=== PATIENT | male | born 1980 | race Caucasian/White ===

== ENCOUNTER 2016-11-27 11:49 | Outpatient (CLI) | payer MEDICAID ==
[~2016-11-27] VITALS: Ht 182.9 cm; Wt 104.5 kg
--- NOTE | ~2016-11-27 | HEMODYNAMI ---
PATIENT:ADAL FINNEGAN MEDICAL RECORD: [id number] : 82 LOCATION:D.CAT ADMISSION DATE: 11/27/16 Generatedon:11/27/201614:16 Patient name: ADAL FINNEGAN Patient #: [id number] : 1980 Date of study: 11/27/2016 Page: Of Hemodynamic Procedure Report Patient Data Patient Demographics Procedure consent was obtained First Name: ADAL Gender: Male Last Name: KAIN : 1980 Middle Initial: ELENITA Age: 36 year(s) Patient #: [id number] Race: Unknown SSN: [id number] Additional ID: [id number] Contact details Address: [address] [place] [address] [facility] State: [place] City: [place] Zip code: [address] Past Medical History Allergies: No known allergies Admission Admission Data Admission Date: 11/27/2016 Admission Time: 11:49 Arrival Date: 11/27/2016 Arrival Time: 0:00 Admit Source: Other Height (in.): 75 BSA: 2.3 (m2) Height (cm.): 190.5 BMI: 27.87 (kg/m2) Weight (lbs.): 223 Weight (kg.): 101.15 Procedure Procedure Types Cath Procedure Diagnostic Procedure PPM/ICD PPM Dual Implant Procedure Description Procedure Date Procedure Date: 11/27/2016 Procedure Start Time: 13:26 Procedure End Time: 14:03 Procedure Staff Name Function Evon Cedillo RT Scrub Avery Vasquez MD Performing Physician Cade Iyer MD Performing Physician Emmy Benson RN Nurse Simba Morales RN Fish Technologist Elham Michael RT Monitor Procedure Data Cath Procedure Fluoroscopy Diagnostic fluoroscopy Total fluoroscopy dose: 51 dose: 51 mGy mGy Estimated blood loss: 10 ml Procedure Complications No complications Procedure Medications Medication Administration Route Dosage Ancef (1Gm/50ml NS) I.V.P.B 1 g Ancef Irrigation added to field 1 g (1gm/500ml NS) Lidocaine 1% with added to field 20 ml Epi Bupivacaine 0.5% added to field 20 ml Versed I.V. 1 mg Fentanyl I.V. 50 mcg Versed I.V. 1 mg Fentanyl I.V. 50 mcg Lidocaine 1% with added to field 20 ml Epi Bupivacaine 0.5% added to field 20 ml Fentanyl I.V. 50 mcg Versed I.V. 1 mg Fentanyl I.V. 50 mcg Hemodynamics Rest BSA: 2.3 (m2) O2 Consumption: Estimated: 312.8 (ml/min) O2 Consumption indexed: Estimated:136 (ml/min/m) Pre Cath Intra NCS Post Cath Vital Signs Time Heart Resp SPO2 NIBP (mmHg) Rhythm Pain Sedation Rate (ipm) (%) Status Level (bpm) 13:13:26 67 20 95 132/84(101) NSR 0 (11) 10(A) , No pain 13:17:48 70 17 99 131/83(105) NSR 0 (11) 10(A) , No pain 13:22:10 76 16 97 132/82(104) NSR 0 (11) 10(A) , No pain 13:26:28 77 17 96 142/89(106) NSR 0 (11) 10(A) , No pain 13:30:52 83 16 97 136/87(113) NSR 0 (11) 10(A) , No pain 13:35:12 78 12 96 132/83(100) NSR 0 (11) 10(A) , No pain 13:39:35 85 17 96 143/81(96) NSR 0 (11) 10(A) , No pain 13:44:01 84 15 95 136/77(98) NSR 0 (11) 10(A) , No pain 13:48:17 83 15 95 139/80(99) NSR 0 (11) 10(A) , No pain 13:52:41 87 17 95 140/79(102) NSR 0 (11) 10(A) , No pain 13:57:05 85 16 95 131/81(93) NSR 0 (11) 10(A) , No pain 14:01:28 88 14 95 131/81(91) NSR 0 (11) 10(A) , No pain Medications Time Medication Route Dose Verified Delivered Reason Notes Effective ness by by 13:10:05 Ancef I.V.P.B 1 g Avery Emmy Per (1Gm/50ml [facility] RN physician NS) 13:12:33 Ancef added 1 g Avery Avery used for Irrigation to [place] procedure (1gm/500ml field MD SOTO NS) 13:12:46 Lidocaine added 20 ml Avery Avery used for 1% [facility] SOTO 13:12:53 Bupivacaine added 20 ml Avery Avery used for 0.5% to [place] Christina procedure field MD SOTO 13:26:07 Versed I.V. 1 mg [facility] 13:26:18 Fentanyl I.V. 50 Avery Emmy for [facility] [place] [facility] RN sedation 13:28:47 Versed I.V. 1 mg [facility] sed[facility] 13:28:53 Fentanyl I.V. 50 Avery Emmy for [facility] RN sedation 13:31:00 Lidocaine added 20 ml Avery Avery used for 1% with Epi to Christina Christina procedure field MD SOTO 13:31:06 Bupivacaine added 20 ml Avery Avery used [facility] MD SOTO 13:31:12 Fentanyl I.V. [address] [facility] [address] [facility] 13:32:43 Versed I.V. 1 mg Avery Emmy for [facility] RN sedation 13:51:06 Fentanyl I.V. 50 [facility] Emm[facility] Procedure Log Time Note 13:00:09 Admit Source: Other 13:00:11 Arrival Date: 11/27/2016 12:00:00 AM 13:00:29 Patient Height : 190.5 cm 13:00:40 Patient Weight : 101.15 kg 13:00:55 Diagnostic Cath Status : Elective 13:02:17 Simba Morales RN sent for patient. Start room use. 13:02:19 Time tracking: Regular hours 13:02:24 Plan of Care:Hemodynamics will remain stable., Cardiac rhythm will remain stable., Comfort level will be maintained., Respiratory function will remain adequate., Patient/ family verbilizes understanding of procedure., Procedure tolerated without complication., Recovers from procedure without complications.. 13:02:34 Patient received from Outpatients to CCL 2 Alert and oriented. Tansferred to table in Supine position. 13:02:36 Warm blankets applied, and pauline hugger turned on for patient comfort. 13:02:38 Correct patient and procedure confirmed by team. 13:02:40 Signed procedure consent form obtained from patient. 13:03:10 H&P Date Dictated: 11/19/2016 Within 30 days and on chart., H&P Addendum completed by physician on day of procedure. (MUST COMPLETE FOR ALL OUTPATIENTS). 13:03:15 Pre-procedure instructions explained to patient. 13:03:19 Family in waiting room. 13:03:21 Patient NPO since Midnight. 13:03:32 Patient allergic to No known allergies 13:04:01 Use device set Pacemaker Set 13:04:31 Medtronic employment representative Moo Ramires present for procedure. 13:10:05 Ancef (1Gm/50ml NS) 1 g I.V.P.B was given by Emmy Benson RN; Per physician; 13:12:04 Vital chart was started 13:12:33 Ancef Irrigation (1gm/500ml NS) 1 g added to field was given by Avery Vasquez MD; used for procedure; 13:12:46 Lidocaine 1% with Epi 20 ml added to field was given by Avery Vasquez MD; used for procedure; 13:12:53 Bupivacaine 0.5% 20 ml added to field was given by Avery Vasquez MD; used for procedure; 13:25:10 Is the patient allergic to Iodine/contrast media? No. 13:25:12 Is patient on blood thinner?No 13:25:14 Patient diabetic? No. 13:25:18 Snore? Yes 13:25:20 Sleep apnea? No 13:25:21 Deviated septum? No 13:25:22 Opens mouth fully? Yes 13:25:23 Sticks out tongue? Yes 13:25:38 IV patent on arrival in right hand with 0.9% NaCl at O. 13:25:43 Lab results completed and on chart. 13:25:52 Left chest area was prepped with chlora-prep and draped in sterile fashion 13:25:54 Alarms reviewed by R. N. 13:25:55 Sharps counted by scrub and verified by R.N. 13::57 Physician arrived 13::57 --------ALL STOP TIME OUT------ 13:25:59 Final Timeout: patient, procedure, and site verified with staff and physician. All members of the team are in agreement. 13:26:07 Versed 1 mg I.V. was given by Emmy Benson RN; for sedation; 13:26:08 Left chest site verified by team. 13:26:12 Physical assessment completed. ASA score P 2 - A patient with mild systemic disease as per Avery Vasquez MD. 13:26:16 Sedation plan: IV Moderate Sedation Versed, Fentanyl 13:26:18 Fentanyl 50 mcg I.V. was given by Emmy Benson RN; for sedation; 13:26:38 Procedure started. 13:26:39 Full Disclosure recording started 13::59 Grounding pad site Left thigh. 13:27:46 Grounding pad site free from injury. 13:27:56 Lidocaine 1% w/epi and Bupivacaine 0.5% to left subclavicular area by Cade Iyer MD. 13:27:58 Incision made to left subclavicular area. 13:28:47 Versed 1 mg I.V. was given by Emmy Benson RN; for sedation; 13:28:53 Fentanyl 50 mcg I.V. was given by Emmy Benson RN; for sedation; 13:29:43 Generator pocket made/opened. 13:30:43 Mepilex Dressing opened to sterile field. 13:30:44 2.0 Ticron Multipack opened to sterile field. 13:30:45 3.0 Vicryl Multipack [id number] opened to sterile field. 13:30:45 3.0 Vicryl Single Pack [id number] opened to sterile field. 13:30:46 5.0 Monocryl [id number] opened to sterile field. 13:31:00 Lidocaine 1% with Epi 20 ml added to field was given by Avery Vasquez MD; used for procedure; 13:31:06 Bupivacaine 0.5% 20 ml added to field was given by Avery Vasquez MD; used for procedure; 13:31:12 Fentanyl 50 mcg I.V. was given by Emmy Benson RN; for sedation; 13:32:41 Medtronic 4574-53 PPM Lead opened to sterile field. 13:32:41 Medtronic 4074-58 PPM Lead opened to sterile field. 13:32:42 Medtronic Advisa MRI PPM Dual Generator opened to sterile field. 13:32:43 Versed 1 mg I.V. was given by Emmy Benson RN; for sedation; 13:34:38 Ventricular lead inserted and advanced. 13:35:08 Peel-a-way sheath was split and removed. 13:39:45 Ventricular lead attachment was completed with 2-0 ticron. 13:42:25 Atrial lead inserted and advanced. 13:44:10 Atrial lead attachment was completed with 2-0 ticron. 13:44:57 Device pocket was irrigated with Ancef. 13:45:04 PPM Dual was attached to lead(s) and inserted into pocket. 13:45:32 Subcutaneous closure was completed with 3-0 vicryl plus. 13:47:36 Generator was sutured in place with 2-0 ticron. 13:48:46 Parameters--Ventricular P/R Wave: 14.5mV. Current: .2mA; Threshold: .3V; Impedence: 1723OHMS. 13:49:41 Parameters--Atrial P/R Wave: 2.1mV. Current: 25mA; Threshold: .7V; Impedence: 815OHMS. 13:51:06 Fentanyl 50 mcg I.V. was given by Emmy Benson RN; for sedation; 13:54:17 Skin closure was completed with 3-0 vicryl. 13:55:45 Parameters-- Generator: Mode: AAIR<=>DDDR. Lower Rate: 60bpm. Upper Rate: 130bpm. 13:55:52 Lt Chest incision was dressed with Mepilex dressing. 14:00:52 Procedure ended.(Physican Out) 14:01:29 Flurop Dose total: 51 14:01:29 Fluoroscopy dose: 51 mGy 14:01:32 Sharps counted by scrub and verified by R.N. 14:01:36 Insertion/operative site no bleeding no hematoma. 14:01:44 Post-op/insertion site Left Subclavian vein dressed using a Mepilex dressing. 14:01:53 Post-procedure physical assessment completed. ASA score P 2 - A patient with mild systemic disease as per Avery Vasquez MD. 14:01:59 Post procedure rhythm: paced 14:02:06 Estimated blood loss: 10 ml 14:02:09 Post procedure instruction explained to patient.Patient verbalizes understanding. 14:02:37 Procedure and supply charges have been captured, reviewed, submitted and are correct. 14:02:45 Procedure Complication : No complications 14:02:50 Vital chart was stopped 14:02:56 See physician's report for complete and final results. 14:03:10 Report given to Post Procedure Room. 14:03:18 Patient transfered to Post Procedure Room with Stretcher. 14:03:22 Procedure ended. 14:03:22 Full Disclosure recording stopped 14:03:35 End room use (Document Last) Device Usage Item Name Manufacture Quantity Catalog Hospital Part Current Minimal Lo t# / Number Charge Number Stock Stock Serial# Code Mepilex Cardinal 1 [id number] [id number] [id number] 5 Dressing Health 2.0 Ethicon 7 [id number] 610620 5 Ticron Multipack 3.0 Ethicon 1 [id number] 609865 148540 5 Vicryl Multipack [id number] 3.0 Ethicon 1 [id number] 983786 185798 5 Vicryl Single Pack [id number] 5.0 Ethicon 1 [id number] 122624 943578 5 Monocryl [id number] Medtronic Medtronic 1 4574-53 116838 481285 5 BB [id number] 4574-53 10-09-31 PPM Lead Medtronic Medtronic 1 4074-58 984242 706111 5 BB [id number] 4074-58 PPM Lead Medtronic Medtronic 1 [id number] 424180 676112 5 PV [id number] Advisa 10-04-14 MRI PPM Dual Generator Signature Audit [place] Stage Time Signature Unsigned Intra-Procedure 11/27/2016 Elham Michael 2:16:54 PM RT(R) Signatures Monitor : Elham Michael Signature : RT Date : Time : [address] [place] [address]
[2016-11-27] MEDS ORDERED: PRINIVIL20 MG PO (12:41)
[2016-11-27] MEDS ORDERED: ZYLOPRIM300 MG PO (12:41)
[2016-11-27] MEDS ORDERED: TOPROL XL50 MG PO (12:42)
[2016-11-27] MEDS ORDERED: CELEXA20 MG PO (12:42)
[2016-11-27 12:48] VITALS: BP 141/86; BMI 31.2
[2016-11-27 13:15] LABS: APTT 30.3 SECONDS (22.8-39.4); INR 0.93 (0.85-1.17); PROTIME 12.3 SECONDS (11.6-15.0)
[2016-11-27 13:37] LABS: CALC OSMOLALITY 267 mosm/kg (275-300); CALCIUM 8.4 mg/dL (8.5-10.1); CHLORIDE - SERUM 96 mmol/L (98-107); GLUCOSE 108 mg/dL (74-106); POTASSIUM - SERUM 4.7 mmol/L (3.5-5.1); SODIUM 131 mmol/L (136-145); UREA NITROGEN 24 mg/dL (7-18); eGFR NON AFRICAN AMERICAN 90 mL/min (90-120)
[2016-11-27 14:04] LABS: HEMATOCRIT 36.8 % (42.0-54.0); MCV 94.1 fL (80.0-100.0); MEAN PLATELET VOLUME 10.6 fL (7.4-10.4); RBC 3.91 10x6/uL (4.20-6.10); RDW 15.7 % (11.5-14.5); WBC 5.3 10x3/uL (4.8-10.8)
[2016-11-27 14:12] LABS: HEMOGLOBIN 12.7 g/dL (13.5-17.5)
[2016-11-27 14:14] LABS: MCH 32.6 pg (26.0-34.0); MCHC 34.6 g/dL (31.0-37.0)
--- NOTE | 2016-11-27 14:35 | NUR ---
VSS WITH CHEST PAIN DENIED PACE MAKER SITE TO LEFT CHEST WALL CDI WITH LEFT ARM TO SLING. PATIENT COMPLAINS OF PAIN TO SITE. ONE NORCO GIVEN PER ORDERS OF DR CONSTANTINO. WILL MONITOR
--- NOTE | 2016-11-27 15:00 | NUR ---
1500 TALKING TO FAMILY AT SIDE WITH VSS. LEFT ARM TO SLING SANDWICH AND SODA PROVIDED 1530 VSS WITH DRESSING TO LEFT CHEST WALL CDI NO BLEEDING NO HEMATOMA NOTED.
--- NOTE | 2016-11-27 16:09 | NUR ---
TRANSFER FROM DIRECTOR DESIGN HOLDING BY PAULA. OREINTED TO ROOM. CALL LIGHT IN REACH. WILL CONT. PLAN OF CARE.
[2016-11-27 16:20] VITALS: BP 172/83; BMI 31.2
[2016-11-27 20:00] VITALS: BP 136/85
[2016-11-28] VITALS: BP 142/90
--- NOTE | 2016-11-28 00:35 | NUR ---
NORCO 10 X 2 GIVEN FOR INCISIONAL PAIN.
--- NOTE | 2016-11-28 03:53 | NUR ---
STEEL DIE ENGRAVER AT BEDSIDE TO OBTAIN VITALS, CALL LIGHT IN REACH. WILL CONTINUE WITH PLAN OF CARE.
[2016-11-28 04:00] VITALS: BP 139/83
--- NOTE | 2016-11-28 06:39 | NUR ---
HEMATOMA NOTED TO LT CEST PACEMAKER AREA DR LLOYD GREEN PRESSURE APPLIED SAND BAG APPLIED WILL CONTINUE TO MONITOR
--- NOTE | 2016-11-28 08:39 | NUR ---
DR KELLEY RETURNED PAGE INFORMED OF SWELLING TO LT PACEMAKER AREA STATES WILL BE RIGHT OVER SANDBAG IN PLACE TO LT CHEST FOR PRESSURE PT C/O OF PAIN
[2016-11-28 09:58] VITALS: BP 139/83; Ht 182.9 cm; Wt 104.5 kg
--- NOTE | 2016-11-28 11:30 | NUR ---
PT TAKEN TO OR FOR EVACUATION OF HEMATOMA LEFT UNIT VIA BED IN STABLE CONDITION
--- NOTE | 2016-11-28 13:00 | NUR ---
RECEIVED PT BACK TO ROOM VIA BED FROM RECOVERY IN STABLE CONDITION VSS PRESSURE DRSG C/D/I TO LT CHEST AREA
--- NOTE | 2016-11-28 14:20 | NUR ---
SCD'S ON BILATERAL LE
--- NOTE | 2016-11-28 14:44 | OP ---
PATIENT NAME: RITESH FINNEGAN MEDICAL RECORD: [id number] :82 LOCATION:D.M2 D.2115 ADMISSION DATE:11/28/16 SURGEON: SYLVIE CONSTANTINO MD DATE OF OPERATION: 11/27/2016 SURGEON: Cade Iyer MD INDICATION: Sick sinus syndrome with sinus arrest greater than 10 seconds. DESCRIPTION OF PROCEDURE: After left subclavian was cannulated via direct visualization, Dr. Iyer, first under fluoroscopic guidance, I placed the RV lead in the RV apex without difficulty. After adequate R waves and thresholds were obtained, I then placed the right atrial lead, right atrial appendage without difficulty. After adequate P waves and thresholds were again obtained, the leads were attached to appropriate poles of the generator and the pocket was closed via Dr. Iyer. IMPRESSION: Successful lead portion of permanent pacemaker placement on Ritesh Finnegan. COMPLICATIONS: None. DISPOSITION: To the floor, stable. ESTIMATED BLOOD LOSS: Minimal. TRANSINT:[id number] Voice Confirmation ID: [id number] DOCUMENT ID: [id number] SYLVIE CONSTANTINO MD at 1444 CC: [id number] DICTATION DATE: 11/27/16 1348 AERONAUTICAL INSPECTOR: 11/27/16 2212 ADM IN [id number] [place] [address]
[2016-11-28 16:57] VITALS: BP 124/70
[2016-11-28 20:15] VITALS: BP 121/73
--- NOTE | 2016-11-28 20:31 | NUR ---
RESUMED CARE OF PT, LYING IN BED RESPIRATIONS EVEN AND UNLABORED ON ROOM AIR. MORPHINE 4MG IVP GIVEN FOR INCISIONAL PAIN. RIGHT HAND INFUSING NS @ KVO. 93 SR ON TELEMETRY. WILL CONTINUE TO MONITOR. CALL LIGHT IN REACH. SEE NURSE ASSESSMENT.
[2016-11-29 04:00] VITALS: BP 139/90
--- NOTE | 2016-11-29 05:30 | NUR ---
CALL LIGHT IN REACH. WILL CONTINUE WITH PLAN OF CARE.
--- NOTE | 2016-11-29 07:30 | NUR ---
RECEIVED PT IN BED EYES CLOSED RESP UNLABORED NAD NOTED DRSG TO LT CHEST C/D/I
[2016-11-29 08:00] VITALS: BP 138/92
[2016-11-29] MEDS ORDERED: HYDROCODONE-APA1 TAB PO (10:17)
--- NOTE | 2016-11-29 10:33 | NUR ---
REVIEWED DISCHARGE INSTRUCTIONS PT STATES UNDERSTANDING COPY GIVEN TO PT DCD RT HAND SALINE LOCK WITH IV CATH INTACT NO REDNESS OR EDEMA NOTED TO SITE PT DISCHARGED HOME LEFT UNIT VIA W/C IN STABLE CONDITION WITH ALL PERSONAL BELONGINGS
--- NOTE | 2016-12-02 14:09 | DS ---
PATIENT:ADAL FINNEGAN :82 MEDICAL RECORD: [id number] DISCHARGE SUMMARY ADMISSION DATE: 11/27/16 DISCHARGE DATE: 11/29/16 PROBLEM LIST: Sick sinus syndrome with sinus arrest. PROCEDURE PERFORMED: Permanent pacemaker placement. BRIEF HOSPITAL COURSE: A 36-year-old who was found to have sinus arrest, pulse greater than 12 seconds, after presenting with syncope. He underwent permanent pacemaker placement, subsequently developed arterial bleeding and have this closed via Dr. Iyer. He was discharged home in good condition. DISCHARGE DIET: AHA diet. DISCHARGE ACTIVITY: As tolerated. I will see him back in the office in month. TRANSINT:[id number] Voice Confirmation ID: [id number] DOCUMENT ID: [id number] SYLVIE CONSTANTINO MD at 1409 CC: [id number] DICTATION DATE: 11/29/16 0843 FRICTION SAW OPERATOR: 11/29/16 1729 DEP CLI 11/29/16 [id number] [place] [address]
--- NOTE | 2017-01-22 10:17 | OP ---
PATIENT NAME: ADAL FINNEGAN MEDICAL RECORD: [id number] :82 LOCATION:D.CAT ADMISSION DATE: SURGEON: ARMEN KELLEY MD DATE OF OPERATION: 11/27/2016 PREOPERATIVE DIAGNOSIS: Sick sinus syndrome with sinus arrest. POSTOPERATIVE DIAGNOSIS: Sick sinus syndrome with sinus arrest. PROCEDURE: Creation of pacemaker pocket. Insertion of atrial and ventricular leads into the central venous circulation. Placement of pacemaker generator in the pacemaker pocket with closure. This was a cosurgeon case. COP EXAMINER: Avery Vasquez MD SURGEON: Armen Kelley MD. ANESTHESIA: Local with IV sedation. The risks, possible complications, and alternatives to procedure were explained to the patient. He elects to proceed. OPERATIVE COURSE: The patient was conveyed to the cardiac catheterization laboratory on 11/27/2016. IV sedation was induced by the nursing staff under my direction. The left chest was sterilely prepped and draped. A local anesthetic was used to infiltrate the skin and subcutaneous tissues inferior to the left clavicle. A transverse incision was accomplished down to the pectoralis fascia. A subcutaneous pocket was created in caudad direction. Through this pocket, I accessed the left subclavian vein in an antegrade fashion. A 9-Singaporean dilator sheath was advanced over the wire under fluoroscopy. The dilator was removed. Through the sheath, the ventricular lead was advanced. The Peel-Away sheath was then removed. Dr. Avery Vasquez positioned the lead, appropriate thresholds were obtained. I then sutured the lead to the underlying pectoralis muscle with 2-0 TiCron times 2. Over the secondary wire, a 7-Singaporean dilator sheath was advanced. The dilator and wire were removed. Through the sheath, an atrial lead was advanced. The Peel-Away sheath was then removed. Dr. Avery Vasquez positioned the atrial lead. Appropriate thresholds were obtained. I sutured the atrial lead to the underlying pectoralis fascia and muscle with 2-0 TiCron times 2. An additional 2-0 TiCron was applied medially around both leads in order to prevent back bleeding. I identified the serial number on the ventricular lead and confirmed this with the pacemaker retail service representative. The ventricular lead was placed in the ventricular dock of the pacemaker. The wrench was then used to tighten down the lead. I then confirmed the atrial lead serial number with the pacemaker television production technician. Atrial lead was placed in atrial dock of the pacemaker generator and I tightened down with the wrench. I tried to dislodge the atrial lead and the ventricular lead and was unable to do so, indicating that they were firmly seated in the pacemaker generator. The pacemaker was placed in the pacemaker pocket with care paid to position the leads posterior to pacemaker generator. The pacemaker was sutured to the underlying pectoralis fascia muscle with a 2-0 OPERATIVE REPORT [id number] ADAL FINNEGAN. I irrigated in the pacemaker pocket with normal saline. The deep adipose layer was closed with interrupted 3-0 Vicryl sutures. The subcutaneous tissues were closed with interrupted 3-0 Vicryls. The skin was closed with a running intracuticular 3-0 Vicryl. A sterile dressing was applied. The patient was then conveyed to the prior cardiac catheterization recovery area. TRANSINT:[id number] Voice Confirmation ID: [id number] DOCUMENT ID: [id number] ARMEN KELLEY MD at 1017 CC: AVERY CONSTANTINO MD [id number] DICTATION DATE: 11/27/16 1413 OUTREACH NURSE: 11/27/16 2231 DEP CLI 11/29/16 [facility] [address] [place] [address]
--- NOTE | 2017-01-22 10:17 | OP ---
PATIENT NAME: ADAL FINNEGAN MEDICAL RECORD: [id number] :82 LOCATION:D.CAT ADMISSION DATE: SURGEON: ARMEN KELLEY MD DATE OF OPERATION: 11/28/2016 PREOPERATIVE DIAGNOSIS: Postoperative pacemaker pocket hematoma. POSTOPERATIVE DIAGNOSIS: Postoperative pacemaker pocket hematoma due to a subcutaneous arterial squirter on the medial aspect of the pacemaker pocket. PROCEDURE: Incision and drainage of pacemaker pocket's hematoma with evacuation of the hematoma. SURGEON: Armen Kelley MD JOINT CUTTER: None. BLOOD LOSS: 150 cc. ANESTHESIA: General. COMPLICATIONS: None. The risks, possible complications and alternatives to the procedure were explained to the patient. He elects to proceed. OPERATIVE COURSE: The patient was conveyed to the operating room urgently on 11/28/2016. General anesthesia was induced by the anesthesia staff. The skin and subcutaneous sutures were cut. I immediately identified an arterial squirter from the subcutaneous tissues at the medial aspect of the incision. This was cauterized. There was no further bleeding. I evacuated the hematoma. Portions were solid and portions were liquid. I irrigated with hydrogen peroxide. There was no further bleeding. I then instilled Cassie into the pacemaker pocket. The subdermis was approximated with interrupted 3-0 Vicryls. The skin was approximated with a running intracuticular 4-0 Monocryl. Prior to the procedure, I asked the vascular ultrasound technician to obtain a fluoroscopic image of the leads to ensure that they had not been dislodged. The leads looked fine. Sterile dressing was applied. The patient was then extubated and conveyed to post-anesthesia care unit where he was in stable condition. We will watch him overnight for rebleeding. TRANSINT:[id number] Voice Confirmation ID: [id number] DOCUMENT ID: [id number] OPERATIVE REPORT [id number] KAINADAL ARMEN VIRK MD at 1017 CC: [id number] DICTATION DATE: 11/28/16 1204 SUPERVISOR FISH BAIT PROCESSING: 11/28/16 1405 DEP CLI 11/29/16 [address] [place] [address]
== END 2016-11-29 10:33 | disposition home or self-care (01) ==
LOC: D.CATH 11:49 → D.M2 11:49 → D.CATH 13:00 → D.M2 15:56 → D.CATH 11-28 09:11 → D.M2 11-28 09:11 → D.CATH 11-28 09:11 → D.M2 11-28 09:11 → D.CATH 11-29 10:33 → D.M2 11-29 10:33
PROVIDERS: Internal Medicine Interventional Cardiology
DX: I49.5 Sick sinus syndrome (principal); L76.32 Postprocedural hematoma of skin and subcutaneous tissue following other procedure

== ENCOUNTER 2018-01-15 23:20 | Emergency (ER) | payer MEDICAID ==
[2016-11-28 09:58] VITALS: BMI 31.2
[~2018-01-15 23:20] MED LIST: CELEXA20 MG PO; HYDROCODONE-APA1 TAB PO; PRINIVIL20 MG PO; TOPROL XL50 MG PO; ZYLOPRIM300 MG PO
[2018-01-15 23:50] LABS: BASOPHILS 0.2 % (0-2); EOSINOPHILS 1.7 % (0-7); HEMATOCRIT 40.6 % (42.0-54.0); HEMOGLOBIN 14.1 g/dL (13.5-17.5); IMMATURE GRANULOCYTES 0.1 % (0-5); LYMPHOCYTES 35.4 % (15-50); MCH 32.7 pg (26.0-34.0); MCHC 34.7 g/dL (31.0-37.0); MCV 94.2 fL (80.0-100.0); MEAN PLATELET VOLUME 9.1 fL (7.4-10.4); MONOCYTES 6.2 % (2-11); NEUTROPHILS 56.4 % (40-80); PLATELET COUNT 222 10x3/uL (130-400); RBC 4.31 10x6/uL (4.20-6.10); RDW 14.2 % (11.5-14.5); WBC 8.1 10x3/uL (4.8-10.8)
[2018-01-16 00:31] LABS: ALBUMIN 4.3 g/dL (3.4-5.0); ALKALINE PHOSPHATASE 142 U/L (46-116); ALT (SGPT) 45 U/L (10-68); CALC OSMOLALITY 274 mosm/kg (275-300); CALCIUM 8.5 mg/dL (8.5-10.1); CARBON DIOXIDE 25.7 mmol/L (21.0-32.0); CHLORIDE - SERUM 100 mmol/L (98-107); CHOL - HDL RATIO 1.8 ratio (2.3-4.9); CHOLESTEROL, TOTAL 218 mg/dL (0-200); CKMB 5.1 U/L (0.0-3.6); CREATINE KINASE 460 UL (21-232); CREATININE - SERUM 0.9 mg/dL (0.6-1.3); GLUCOSE 139 mg/dL (74-106); HDL CHOLESTEROL 120 mg/dL (32-96); LDL CHOLESTEROL 74 mg/dL (0-100); LDL-HDL RATIO 0.6 ratio (1.5-3.5); PROTEIN - SERUM 7.7 g/dL (6.4-8.2); SODIUM 137 mmol/L (136-145); TRIGLYCERIDE 121 mg/dL (30-200); TROPONIN-I < 0.017 ng/mL (0.000-0.060); UREA NITROGEN 9 mg/dL (7-18); eGFR NON AFRICAN AMERICAN > 90 mL/min (90-120)
== END 2018-01-16 00:43 | disposition home or self-care (01) ==
LOC: D.ER 23:20
PROVIDERS: Emergency Medicine
DX: R07.89 Other chest pain (principal); F17.200 Nicotine dependence, unspecified, uncomplicated; I10 Essential (primary) hypertension